=== PATIENT | female | born 1940 | race Two or more races ===

== ENCOUNTER 2020-01-08 10:30 | Inpatient (IN) | payer OTHER ==
[~2020-01-08] VITALS: Ht 149.9 cm; Wt 58.1 kg
[2020-01-08] MEDS ORDERED: CARDURA XL4 MG PO (12:14)
[2020-01-08] MEDS ORDERED: ZESTRIL10 M1 PO (12:14)
[2020-01-08] MEDS ORDERED: VERELAN240 MG PO (12:14)
[2020-01-08] MEDS ORDERED: SIMVASTATIN20 MG PO (12:14)
[2020-01-08] MEDS ORDERED: LASIX20 MG PO (12:15)
[2020-01-08] MEDS ORDERED: CALTRATE 600 +1 EACH (12:15)
[2020-01-08] MEDS ORDERED: FOSAMAX70 MG PO (12:15)
[2020-01-16] MEDS ORDERED: PANTOPRAZOLE SO40 MG PO (07:50)
[2020-01-16] MEDS ORDERED: INTESTINEX680 M1 PO (07:50)
[2020-01-16] MEDS ORDERED: ULTRACET PO (07:51)
== END 2020-01-16 11:20 | disposition home or self-care (01) | DRG 331 ==
LOC: O/R 01-13 05:46 → SURH 01-13 05:46 → O/R 01-13 10:30 → SURH 01-13 10:30
PROVIDERS: ADMIT Surgery
PROC: 0DTN4ZZ Resection of Sigmoid Colon, Percutaneous Endoscopic Approach (ICD-10-PCS; 2020-01-13)
PROC: 07BC4ZX Excision of Pelvis Lymphatic, Percutaneous Endoscopic Approach, Diagnostic (ICD-10-PCS; 2020-01-13)
PROC: 0DTP4ZZ Resection of Rectum, Percutaneous Endoscopic Approach (ICD-10-PCS; principal; 2020-01-13 07:15)
DX: C19 Malignant neoplasm of rectosigmoid junction (principal)

== ENCOUNTER 2020-02-20 05:41 | Day surgery (SDC) | payer OTHER ==
[~2020-02-20 05:41] MED LIST: CALTRATE 600 +1 EACH; CARDURA XL4 MG PO; FOSAMAX70 MG PO; INTESTINEX680 M1 PO; LASIX20 MG PO; PANTOPRAZOLE SO40 MG PO; SIMVASTATIN20 MG PO; ULTRACET PO; VERELAN240 MG PO; ZESTRIL10 M1 PO
[2020-02-20] MEDS ORDERED: ULTRACET PO (10:24)
== END 2020-02-20 12:15 | disposition home or self-care (01) ==
LOC: CIR.AMB 05:41 → ADM 09:00 → CIR.AMB 12:15
PROVIDERS: ATTEND Surgery
DX: C18.7 Malignant neoplasm of sigmoid colon (principal)
CPT/HCPCS: 36561; C1751

== ENCOUNTER 2020-02-25 08:43 | Outpatient (CLI) | payer OTHER | END 2020-02-25 12:41 | disposition home or self-care (01) | LOC: NUCLEAR 08:43 | PROVIDERS: ATTEND Surgery | DX: C18.7 Malignant neoplasm of sigmoid colon (principal); R19.4 Change in bowel habit; K92.1 Melena | CPT/HCPCS: 78816; A9552 ==

== ENCOUNTER 2020-11-10 05:58 | Day surgery (SDC) | payer OTHER | END 2020-11-10 09:45 | disposition home or self-care (01) | LOC: AMB-ENDOS 05:58 | PROVIDERS: ATTEND Surgery | DX: K62.89 Other specified diseases of anus and rectum (principal); K64.8 Other hemorrhoids; Z20.822 Contact with and (suspected) exposure to COVID-19 ==

== ENCOUNTER 2022-02-28 05:38 | Day surgery (SDC) | payer OTHER ==
[2022-02-28] MEDS ORDERED: ULTRACET PO (08:24)
== END 2022-02-28 10:30 | disposition home or self-care (01) ==
LOC: CIR.AMB 05:38
PROVIDERS: ATTEND Surgery
DX: C18.7 Malignant neoplasm of sigmoid colon (principal); R19.4 Change in bowel habit; K92.1 Melena; Z20.822 Contact with and (suspected) exposure to COVID-19; Z88.0 Allergy status to penicillin; I10 Essential (primary) hypertension; E78.00 Pure hypercholesterolemia, unspecified; Z92.21 Personal history of antineoplastic chemotherapy